=== PATIENT | male | born 1970 | race Two or more races ===

== ENCOUNTER 2018-05-31 19:28 | Emergency (ER) | payer OTHER ==
[~2018-05-31] VITALS: Ht 177.8 cm; Wt 97.5 kg
[2018-05-31] MEDS ORDERED: REVLIMID10 MG (19:39)
== END 2018-05-31 23:32 | disposition home or self-care (01) ==
LOC: ER 19:28
DX: S01.122A Laceration with foreign body of left eyelid and periocular area, initial encounter (principal); W50.0XXA Accidental hit or strike by another person, initial encounter; Y93.67 Activity, basketball; Y92.89 Other specified places as the place of occurrence of the external cause; Y99.8 Other external cause status

== ENCOUNTER 2018-06-08 08:28 | Emergency (ER) | payer OTHER ==
[~2018-06-08] VITALS: Ht 177.8 cm; Wt 93.0 kg
[~2018-06-08 08:28] MED LIST: REVLIMID10 MG
== END 2018-06-08 09:50 | disposition home or self-care (01) ==
LOC: ER 08:28
DX: Z48.02 Encounter for removal of sutures (principal)

== ENCOUNTER 2018-06-11 10:44 | Emergency (ER) | payer OTHER ==
[~2018-06-11] VITALS: Ht 177.8 cm; Wt 93.0 kg
== END 2018-06-11 12:58 | disposition home or self-care (01) ==
LOC: ER 10:44
DX: Z48.02 Encounter for removal of sutures (principal)